=== PATIENT | female | born 2000 | race Caucasian/White ===

== ENCOUNTER 2021-04-02 08:29 | Inpatient (IN) | payer MEDICAID ==
[~2021-04-02] VITALS: Ht 162.6 cm; Wt 53.1 kg
[2021-04-02] MEDS ORDERED: SODIUM CHLORIDE 0.9% 1,000 ML IV ONE ×2 (09:00→12:15)
[2021-04-02] MEDS ORDERED: PREDNISONE 10MG TABLET PO ONE (09:15)
[2021-04-02] MEDS ORDERED: MORPHINE SULFATE 4 MG/ML CPJ (NOT FOR IM USE) IV ONE (09:15)
[2021-04-02 09:30] LABS: HEMATOCRIT. 26.4 % (36.0-48.0); HEMOGLOBIN. 8.9 g/dL (12.0-16.0); MEAN CORPUSCULAR HEMOGLOBIN 24.9 pg (28.0-32.0); MEAN CORPUSCULAR VOLUME 73.7 fL (81.0-99.0); MEAN PLATELET VOLUME 7.2 fl (7.4-10.4); PLATELET 236 x1000/uL (130-400); RED BLOOD CELL COUNT 3.58 mill/uL (4.2-5.4); RED CELL DISTRIBUTION WIDTH 19.8 % (11.6-14.6)
[2021-04-02 09:38] LABS: CHLORIDE 105 mEq/L (98-107)
[2021-04-02 09:39] LABS: INR 0.9; PROTHROMBIN TIME 10.2 sec (9.6-11.0)
[2021-04-02 09:43] LABS: ETHANOL BLOOD < 10 mg/dL
[2021-04-02 09:45] LABS: HCG SCREEN NEGATIVE
[2021-04-02 10:25] LABS: PLATELET ESTIMATE NORMAL
[2021-04-02 12:29] LABS: CLARITY URINE CLEAR (CLEAR); COLOR URINE YELLOW (YELLOW); KETONES URINE NEGATIVE (NEGATIVE); LEUKOCYTE ESTERASE URINE NEGATIVE (NEGATIVE); NITRITE URINE NEGATIVE (NEGATIVE); OCCULT BLOOD URINE NEGATIVE (NEGATIVE); PH URINE 7.5 (4.5-8.0); PROTEIN URINE 2+ (NEGATIVE); UROBILINOGEN URINE 0.2 E.U./dL (0.2-1.0)
[2021-04-02 13:17] LABS: *BARBITURATES SCREEN URINE NEGATIVE (NEGATIVE)
[2021-04-02 13:18] LABS: *BENZODIAZEPINES SCREEN URINE NEGATIVE (NEGATIVE); *COCAINE SCREEN URINE NEGATIVE (NEGATIVE); METHADONE URINE SCREEN NEGATIVE (NEGATIVE); PHENCYCLIDINE URINE SCREEN NEGATIVE (NEGATIVE)
[2021-04-02 13:27] LABS: *AMPHETAMINES SCREEN URINE PRESUMTIVE POSITIVE (NEGATIVE); CANNABINOID URINE SCREEN PRESUMTIVE POSITIVE (NEGATIVE); OPIATES URINE SCREEN PRESUMTIVE POSITIVE (NEGATIVE)
[2021-04-02] MEDS ORDERED: CEFP200T13 MT (14:27)
[2021-04-02] MEDS ORDERED: ALBU6.7H9 INH (14:27)
[2021-04-02] MEDS ORDERED: DOXY100C2 MT (14:27)
[2021-04-02] MEDS ORDERED: IOHEXOL-350 100 ML BOTTLE ONE (15:02)
[2021-04-02] MEDS ORDERED: CEFTRIAXONE 1 G PREMIX 50 ML IV ONE (15:30)
[2021-04-02] MEDS ORDERED: HYDROCODONE/ACETAMINOPHEN 5/325MG TABLET PO PRN (21:45)
[2021-04-02] MEDS ORDERED: NALOXONE HCL 0.4MG/ML VIAL IV PRN (21:45)
[2021-04-03 04:00] VITALS: BP 120/80
[2021-04-03 04:17] VITALS: BP 120/80
[2021-04-03] MEDS ORDERED: PRED5TAB PO (05:03)
[2021-04-03] MEDS: DEXT 5%/0.45% NACL 1000ML 1,000 ML IV SCH ×2 (06:51→17:07)
[2021-04-03] MEDS ORDERED: PANTOPRAZOLE 40MG DR TABLET PO SCH (07:20)
[2021-04-03 08:00] VITALS: BP 116/67
[2021-04-03] MEDS ORDERED: ENOXAPARIN 40MG/0.4ML SYR SUBCUT SCH (09:00)
[2021-04-03] MEDS: PREDNISONE 5MG TABLET PO SCH ×2 (09:02→17:07)
[2021-04-03 12:00] VITALS: BP 100/56
[2021-04-03] MEDS ORDERED: ACETAMINOPHEN 325MG TABLET PO PRN (13:45)
[2021-04-03] MEDS ORDERED: BISACODYL 10MG SUPP PR PRN (13:45)
[2021-04-03] MEDS ORDERED: ACETAMINOPHEN 650MG SUPP PR PRN (13:45)
[2021-04-03] MEDS ORDERED: ONDANSETRON HCL 4MG/2ML INJ IV PRN (13:45)
[2021-04-03] MEDS ORDERED: IPRATROPIUM/ALBUTEROL 0.5-3(2.5)MG/3ML NEB HHN PRN (13:45)
[2021-04-03 15:28] LABS: BG BASE EXCESS -5.5 mmol/L (-2.0-2.0); BG FRACTION INSPIRED OXYGEN 21; BG HCO3 ACT 18.4 mmol/L (22.0-26.0); BG METHEMOGLOBIN 0.2 % (0.0-1.5); BG OXYHEMOGLOBIN 96.8 % (94.0-97.0); BG PCO2 29.9 mmHg (35.0-45.0); BG PH 7.408 (7.350-7.450); BG PO2 97.6 mmHg (75.0-100.0); BG SAMPLE SITE RIGHT BRACHIAL; BG TOTAL HEMOGLOBIN 8.5 g/dL (12.0-18.0); BG VENT MODE ROOM AIR
[2021-04-03] MEDS: AZITHROMYCIN 500 MG in DEXT 5% WATER 250 ML IV SCH (15:43)
[2021-04-03 16:16] LABS: HEMATOCRIT. 24.4 % (36.0-48.0); HEMOGLOBIN. 8.1 g/dL (12.0-16.0); MEAN CORPUSCULAR HEMOGLOBIN 24.2 pg (28.0-32.0); MEAN CORPUSCULAR VOLUME 73.2 fL (81.0-99.0); MEAN PLATELET VOLUME 7.5 fl (7.4-10.4); PLATELET 203 x1000/uL (130-400); RED BLOOD CELL COUNT 3.33 mill/uL (4.2-5.4); RED CELL DISTRIBUTION WIDTH 19.9 % (11.6-14.6)
[2021-04-03 16:26] LABS: CHLORIDE 111 mEq/L (98-107)
[2021-04-03 16:30] VITALS: BP 101/59
[2021-04-03 16:33] LABS: LDL CHOLESTEROL 73 mg/dL (5-100)
[2021-04-03 16:34] LABS: TOTAL IRON BINDING CAPACITY 165 ug/dL (250-450)
[2021-04-03 16:36] LABS: T4 FREE 1.21 ng/dL (0.76-1.46)
[2021-04-03 16:43] LABS: HAPTOGLOBIN 309 mg/dL (30-200)
[2021-04-03 16:44] LABS: HDL CHOLESTEROL 25 mg/dL (40-59)
[2021-04-03] MEDS: CEFTRIAXONE 1,000 MG in DEXTROSE 5% WATER 50 ML IV SCH (17:07)
[2021-04-03 17:09] LABS: PLATELET ESTIMATE NORMAL
[2021-04-03 17:20] LABS: FERRITIN 206 ng/mL (10-291)
[2021-04-03 17:25] LABS: VITAMIN B12 SERUM 403 pg/mL (211-911)
[2021-04-03] MEDS: FERROUS SULFATE 300MG/5ML UDC PO SCH (21:38)
[2021-04-03] MEDS: PANTOPRAZOLE 40MG DR TABLET PO SCH (21:38)
[2021-04-03] MEDS: HYDROXYCHLOROQUINE SULFATE 200MG TABLET PO SCH (21:38)
[2021-04-03] MEDS: ASCORBIC ACID 500 MG TABLET PO SCH (21:39)
[2021-04-03] MEDS: DICLOFENAC SODIUM 75MG DR (EC) TABLET PO SCH (21:39)
[2021-04-04] VITALS: BP 124/82
[2021-04-04] MEDS: METHYLPREDNISOLONE SOD SUCC 125 MG/2 ML VIAL IV SCH ×5 (01:59→23:58)
[2021-04-04] MEDS: DEXT 5%/0.45% NACL 1000ML 1,000 ML IV SCH ×2 (02:03→20:48)
[2021-04-04 04:00] VITALS: BP 120/80
[2021-04-04] MEDS: PANTOPRAZOLE 40MG DR TABLET PO SCH ×2 (06:07→20:47)
[2021-04-04 07:17] LABS: HEMATOCRIT. 25.7 % (36.0-48.0); HEMOGLOBIN. 8.5 g/dL (12.0-16.0); MEAN CORPUSCULAR HEMOGLOBIN 23.9 pg (28.0-32.0); MEAN CORPUSCULAR VOLUME 72.3 fL (81.0-99.0); MEAN PLATELET VOLUME 7.5 fl (7.4-10.4); PLATELET 220 x1000/uL (130-400); RED BLOOD CELL COUNT 3.56 mill/uL (4.2-5.4); RED CELL DISTRIBUTION WIDTH 20.2 % (11.6-14.6)
[2021-04-04 07:31] LABS: CHLORIDE 111 mEq/L (98-107)
[2021-04-04 08:00] VITALS: BP 109/79
[2021-04-04] MEDS: FERROUS SULFATE 300MG/5ML UDC PO SCH (08:28)
[2021-04-04] MEDS: ASCORBIC ACID 500 MG TABLET PO SCH ×2 (08:29→20:47)
[2021-04-04] MEDS: HYDROXYCHLOROQUINE SULFATE 200MG TABLET PO SCH (08:29)
[2021-04-04] MEDS: DICLOFENAC SODIUM 75MG DR (EC) TABLET PO SCH ×2 (08:29→20:47)
[2021-04-04] MEDS: METHOTREXATE SODIUM 2 . 5MG TABLET PO SCH ×2 (08:30→18:17)
[2021-04-04] MEDS: FERROUS SULFATE 325MG TABLET PO SCH ×2 (12:49→18:18)
[2021-04-04 12:52] VITALS: BP 112/71
[2021-04-04] MEDS ORDERED: METHOTREXATE SODIUM 2 . 5MG TABLET PO SCH ×2 (13:00→18:00)
[2021-04-04] MEDS: FOLIC ACID 1MG TABLET PO SCH (15:45)
[2021-04-04] MEDS: CEFTRIAXONE 1,000 MG in DEXTROSE 5% WATER 50 ML IV SCH (15:46)
[2021-04-04 16:32] VITALS: BP 114/71
[2021-04-04] MEDS: AZITHROMYCIN 500 MG in DEXT 5% WATER 250 ML IV SCH (16:50)
[2021-04-04 17:39] LABS: PLATELET ESTIMATE NORMAL
[2021-04-04 20:00] VITALS: BP 117/84
[2021-04-05] VITALS: BP 127/92
[2021-04-05 04:00] VITALS: BP 125/98
[2021-04-05 05:41] LABS: BASOPHILS % 0.3 % (0.0-2.0); HEMATOCRIT. 25.1 % (36.0-48.0); LYMPHOCYTES % 15.5 % (20.0-50.0); MEAN CORPUSCULAR HEMOGLOBIN 23.6 pg (28.0-32.0); MEAN CORPUSCULAR VOLUME 73.9 fL (81.0-99.0); NEUTROPHILS % 79.2 % (40.0-76.0); PLATELET 239 x1000/uL (130-400); RED CELL DISTRIBUTION WIDTH 19.5 % (11.6-14.6)
[2021-04-05 05:44] LABS: CHLORIDE 112 mEq/L (98-107)
[2021-04-05] MEDS: PANTOPRAZOLE 40MG DR TABLET PO SCH (06:21)
[2021-04-05] MEDS: DEXT 5%/0.45% NACL 1000ML 1,000 ML IV SCH (06:21)
[2021-04-05] MEDS: METHYLPREDNISOLONE SOD SUCC 125 MG/2 ML VIAL IV SCH ×4 (06:21→18:06)
[2021-04-05 08:00] VITALS: BP 119/94
[2021-04-05 09:08] LABS: ANTI-DNA DOUBLE STRANDED QUANT > 300 IU/mL (0-9); G6PD RBC 3.56 x10E6/uL (3.77-5.28)
[2021-04-05] MEDS: FOLIC ACID 1MG TABLET PO SCH (09:11)
[2021-04-05] MEDS: ASCORBIC ACID 500 MG TABLET PO SCH (09:11)
[2021-04-05] MEDS: FERROUS SULFATE 325MG TABLET PO SCH ×3 (09:11→18:12)
[2021-04-05] MEDS: HYDROXYCHLOROQUINE SULFATE 200MG TABLET PO SCH (09:11)
[2021-04-05] MEDS: DICLOFENAC SODIUM 75MG DR (EC) TABLET PO SCH (09:11)
[2021-04-05] MEDS: AZITHROMYCIN 500 MG in DEXT 5% WATER 250 ML IV SCH (15:16)
[2021-04-05] MEDS: CEFTRIAXONE 1,000 MG in DEXTROSE 5% WATER 50 ML IV SCH (16:00)
[2021-04-06 17:06] LABS: ANTI-MYELOPEROXIDASE AB < 9.0 U/mL (0.0-9.0); ANTI-PROTEINASE 3 ABS < 3.5 U/mL (0.0-3.5); G6PD QUANTITATIVE 226 (155-399)
[2021-04-06 19:09] LABS: ANA HOMOGENEOUS PATTERN >1:1280 (.); ANA IFA Positive (.)
[2021-04-07 17:09] LABS: ANTI-CARDIOLIPIN AB IGA < 9 APL U/mL (0-11); ANTI-CARDIOLIPIN AB IGG 10 GPL U/mL (0-14); ANTI-CARDIOLIPIN AB IGM 134 MPL U/mL (0-12)
[2021-04-07 19:10] LABS: ACTIN (SMOOTH MUSCLE) ANTIBODY 14 Units (0-19)
[2021-04-08 10:06] LABS: ALDOLASE 5.9 U/L (3.3-10.3); ANGIOTENSION CONVERTING ENZYME 62 U/L (14-82)
[2021-04-09 13:06] LABS: CYTOPLASMIC C-ANCA <1:20 titer (Neg:<1:20); PERINUCLEAR P-ANCA <1:20 titer (Neg:<1:20)
== END 2021-04-05 19:18 | disposition left against medical advice (07) | DRG 346 ==
LOC: ER 08:29 → MICUSO 17:29 → 6WST 04-03 03:31
PROVIDERS: ADMIT Internal Medicine; ATTEND Internal Medicine
DX: M32.9 Systemic lupus erythematosus, unspecified (principal); I50.33 Acute on chronic diastolic (congestive) heart failure; E43 Unspecified severe protein-calorie malnutrition; I27.20 Pulmonary hypertension, unspecified; I31.1 Chronic constrictive pericarditis; J18.9 Pneumonia, unspecified organism; D63.8 Anemia in other chronic diseases classified elsewhere; E86.0 Dehydration; F12.10 Cannabis abuse, uncomplicated; F15.10 Other stimulant abuse, uncomplicated; R80.9 Proteinuria, unspecified; R82.998 Other abnormal findings in urine; F11.10 Opioid abuse, uncomplicated; Z20.822 Contact with and (suspected) exposure to COVID-19; D72.810 Lymphocytopenia; D50.9 Iron deficiency anemia, unspecified; K76.9 Liver disease, unspecified; F17.210 Nicotine dependence, cigarettes, uncomplicated; Z53.29 Procedure and treatment not carried out because of patient's decision for other reasons; Z91.19 Patient's noncompliance with other medical treatment and regimen; Z68.20 Body mass index [BMI] 20.0-20.9, adult
CPT/HCPCS: 36415; 36600; 71045; 71275; 80048; 80053; 80061; 80305; 80320; 81003; 82085; 82164; 82375; 82550; 82607; 82728; 82805; 82955; 83010; 83520; 83540; 83550; 83605; 84134; 84156; 84439; 84443; 84703; 85025; 85041; 85044; 85651; 86038; 86140; 86147; 86160; 86225; 86256; 86592; 86780; 86880; 93005; 93306; 93970; 99285; C9803; J0456; J0696; J1650; J2270; J2930; J7030; J7040; J7060; J7512; J8610; Q9967; U0003; U0005; G0480

== ENCOUNTER 2021-05-21 11:47 | Inpatient (IN) | payer MEDICAID ==
[~2021-05-21] VITALS: Ht 154.9 cm; Wt 51.3 kg
[~2021-05-21 11:47] MED LIST: ALBU6.7H9 INH; CEFP200T13 MT; DOXY100C5 MT; PRED5TAB PO
[2021-05-21] MEDS ORDERED: MORPHINE SULFATE 4 MG/ML CPJ (NOT FOR IM USE) IV ONE (12:45)
[2021-05-21 13:06] LABS: HEMATOCRIT. 31.4 % (36.0-48.0); HEMOGLOBIN. 10.4 g/dL (12.0-16.0); MEAN CORPUSCULAR HEMOGLOBIN 25.5 pg (28.0-32.0); MEAN CORPUSCULAR VOLUME 77.3 fL (81.0-99.0); PLATELET 239 x1000/uL (130-400); RED BLOOD CELL COUNT 4.06 mill/uL (4.2-5.4); RED CELL DISTRIBUTION WIDTH 22.6 % (11.6-14.6)
[2021-05-21 13:11] LABS: CHLORIDE 104 mEq/L (98-107)
[2021-05-21] MEDS ORDERED: MORPHINE SULFATE 2 MG/ML CPJ (NOT FOR IM USE) IV NR (13:15)
[2021-05-21 13:16] LABS: ETHANOL BLOOD < 10 mg/dL
[2021-05-21 13:36] LABS: NUCLEATED RED BLOOD CELLS 1 /100 WBC; PLATELET ESTIMATE NORMAL
[2021-05-21] MEDS ORDERED: VANCOMYCIN 1 G PREMIX 200 ML IV SCH (14:00)
[2021-05-21] MEDS ORDERED: ACETAMINOPHEN 325MG TABLET PO SCH (14:00)
[2021-05-21] MEDS ORDERED: PIPERACILLIN/TAZOBACTAM 3.375GM/50ML PREMIX IV SCH (14:00)
[2021-05-21] MEDS ORDERED: KETOROLAC 15MG/ML VIAL IV SCH (14:00)
[2021-05-21 14:11] LABS: HCG SCREEN NEGATIVE
[2021-05-21] MEDS ORDERED: SODIUM CHLORIDE 0.9% 500 ML IV ONE (14:45)
[2021-05-21] MEDS ORDERED: IOHEXOL-350 100 ML BOTTLE ONE (23:29)
[2021-05-22 00:39] LABS: CLARITY URINE CLEAR (CLEAR); COLOR URINE YELLOW (YELLOW); PH URINE 6.5 (4.5-8.0); SPECIFIC GRAVITY URINE 1.019 (1.005-1.030)
[2021-05-22 00:41] LABS: PROTEIN URINE 2+ (NEGATIVE)
[2021-05-22 00:44] LABS: KETONES URINE NEGATIVE (NEGATIVE); NITRITE URINE NEGATIVE (NEGATIVE); OCCULT BLOOD URINE TRACE (NEGATIVE); UROBILINOGEN URINE 0.2 E.U./dL (0.2-1.0)
[2021-05-22 00:45] LABS: LEUKOCYTE ESTERASE URINE 2+ (NEGATIVE)
[2021-05-22 01:07] LABS: *AMPHETAMINES SCREEN URINE NEGATIVE (NEGATIVE); *BARBITURATES SCREEN URINE NEGATIVE (NEGATIVE); *BENZODIAZEPINES SCREEN URINE NEGATIVE (NEGATIVE); *COCAINE SCREEN URINE NEGATIVE (NEGATIVE)
[2021-05-22 01:08] LABS: METHADONE URINE SCREEN NEGATIVE (NEGATIVE); PHENCYCLIDINE URINE SCREEN NEGATIVE (NEGATIVE)
[2021-05-22 01:15] LABS: CANNABINOID URINE SCREEN PRESUMTIVE POSITIVE (NEGATIVE); OPIATES URINE SCREEN PRESUMTIVE POSITIVE (NEGATIVE)
[2021-05-22] MEDS: MORPHINE SULFATE 2 MG/ML CPJ (NOT FOR IM USE) IV PRN ×2 (01:49→17:16)
[2021-05-22] MEDS ORDERED: KETOROLAC 30MG/ML VIAL IV SCH (04:00)
[2021-05-22] MEDS ORDERED: CEFTRIAXONE 2 G PREMIX 50 ML IV SCH (07:00)
[2021-05-22] MEDS ORDERED: LIDOCAINE HCL 1% 30ML VIAL (10MG/ML) ONE (07:51)
[2021-05-22 09:00] VITALS: BP 111/65
[2021-05-22] MEDS: ACETAMINOPHEN 325MG TABLET PO PRN ×2 (09:07→20:15)
[2021-05-22] MEDS: VANCOMYCIN 1 G PREMIX 200 ML IV SCH ×2 (09:07→15:10)
[2021-05-22] MEDS: CEFTRIAXONE 2 G in DEXTROSE 5% WATER 50 ML IV SCH (09:07)
[2021-05-22] MEDS ORDERED: ONDANSETRON HCL 4MG/2ML INJ IV PRN (09:30)
[2021-05-22] MEDS ORDERED: GUAIFENESIN 200MG/10ML SUGAR FREE UDC PO PRN (09:30)
[2021-05-22] MEDS ORDERED: IPRATROPIUM/ALBUTEROL 0.5-3(2.5)MG/3ML NEB NEB PRN (09:30)
[2021-05-22] MEDS ORDERED: CLONIDINE 0.1MG TABLET PO PRN (09:30)
[2021-05-22] MEDS ORDERED: ACETAMINOPHEN 325MG TABLET PO PRN (09:30)
[2021-05-22] MEDS ORDERED: FUROSEMIDE 40MG/4ML VIAL IVP SCH (09:30)
[2021-05-22] MEDS: ENOXAPARIN 40MG/0.4ML SYR SUBCUT SCH (10:32)
[2021-05-22] MEDS: AZITHROMYCIN 500 MG TABLET PO SCH (10:32)
[2021-05-22 11:33] VITALS: BP 109/62
[2021-05-22 11:39] VITALS: BP 111/65
[2021-05-22 15:45] VITALS: BP 110/63
[2021-05-22 20:00] VITALS: BP 99/60
[2021-05-22] MEDS ORDERED: COLC0.6C3 PO (20:23)
[2021-05-22] MEDS ORDERED: ALBUTEROL 6.7GM HFA INHALER INH SCH (20:30)
[2021-05-22] MEDS ORDERED: NALOXONE HCL 0.4MG/ML VIAL IV PRN (22:30)
[2021-05-22] MEDS: COLCHICINE 0.6MG TABLET PO SCH (22:42)
[2021-05-22] MEDS: PREDNISONE 5MG TABLET PO SCH (22:42)
[2021-05-23] VITALS (7 sets, daily range): BP systolic 98–119; BP diastolic 56–82
[2021-05-23] MEDS: VANCOMYCIN 1 G PREMIX 200 ML IV SCH ×2 (00:23→09:20)
[2021-05-23] MEDS: MORPHINE SULFATE 2 MG/ML CPJ (NOT FOR IM USE) IV PRN ×4 (00:34→18:49)
[2021-05-23 07:56] LABS: HEMATOCRIT. 25.1 % (36.0-48.0); HEMOGLOBIN. 8.3 g/dL (12.0-16.0); MEAN CORPUSCULAR HEMOGLOBIN 25.1 pg (28.0-32.0); MEAN CORPUSCULAR VOLUME 75.6 fL (81.0-99.0); MEAN PLATELET VOLUME 8.2 fl (7.4-10.4); PLATELET 181 x1000/uL (130-400); RED BLOOD CELL COUNT 3.32 mill/uL (4.2-5.4); RED CELL DISTRIBUTION WIDTH 22.8 % (11.6-14.6)
[2021-05-23 08:06] LABS: CHLORIDE 102 mEq/L (98-107)
[2021-05-23] MEDS: CEFTRIAXONE 2 G in DEXTROSE 5% WATER 50 ML IV SCH (08:45)
[2021-05-23] MEDS: ENOXAPARIN 40MG/0.4ML SYR SUBCUT SCH (08:49)
[2021-05-23] MEDS: AZITHROMYCIN 500 MG TABLET PO SCH (08:50)
[2021-05-23] MEDS: COLCHICINE 0.6MG TABLET PO SCH ×2 (08:50→18:53)
[2021-05-23] MEDS: PREDNISONE 5MG TABLET PO SCH ×2 (08:50→18:53)
[2021-05-23 09:46] LABS: BG BASE EXCESS -1.1 mmol/L (-2.0-2.0); BG CARBOXYHEMOGLOBIN 0.3 % (0.5-1.5); BG DEOXYHEMOGLOBIN 3.2 % (0.0-5.0); BG FRACTION INSPIRED OXYGEN 21; BG HCO3 ACT 22.4 mmol/L (22.0-26.0); BG METHEMOGLOBIN 0.3 % (0.0-1.5); BG OXYGEN SATURATION 96.8 % (92.0-98.5); BG OXYHEMOGLOBIN 96.2 % (94.0-97.0); BG PCO2 32.4 mmHg (35.0-45.0); BG PH 7.457 (7.350-7.450); BG PO2 90.2 mmHg (75.0-100.0); BG SAMPLE SITE RIGHT RADIAL; BG TOTAL HEMOGLOBIN 8.8 g/dL (12.0-18.0); BG VENT MODE ROOM AIR
[2021-05-23 11:52] LABS: RHEUMATOID FACTOR SCREEN POSITIVE (NEGATIVE)
[2021-05-23 15:51] LABS: PLATELET ESTIMATE NORMAL
[2021-05-23] MEDS: ACETAMINOPHEN 325MG TABLET PO PRN (20:27)
[2021-05-25] MEDS ORDERED: COLCHICINE 0.6MG TABLET PO SCH (09:00)
== END 2021-05-23 21:00 | disposition home or self-care (01) | DRG 720 ==
LOC: ER 11:47 → MICUSO 05-22 00:27 → EDBEDREQTM 05-22 00:35 → EDBEDREQ 05-22 00:35 → EDBEDREQDT 05-22 00:35 → 6WST 05-22 05:20
PROVIDERS: ADMIT Internal Medicine; ATTEND Internal Medicine
DX: A41.9 Sepsis, unspecified organism (principal); I50.33 Acute on chronic diastolic (congestive) heart failure; I31.3 Pericardial effusion (noninflammatory); I31.9 Disease of pericardium, unspecified; D50.9 Iron deficiency anemia, unspecified; F19.11 Other psychoactive substance abuse, in remission; J45.909 Unspecified asthma, uncomplicated; M32.9 Systemic lupus erythematosus, unspecified; I11.0 Hypertensive heart disease with heart failure; Z20.822 Contact with and (suspected) exposure to COVID-19; Z79.899 Other long term (current) drug therapy
CPT/HCPCS: 36415; 36600; 71045; 71275; 80048; 80053; 80202; 80305; 80320; 81003; 82375; 82805; 83605; 83880; 84145; 84484; 84703; 85025; 85379; 85651; 86038; 86430; 86703; 87426; 93005; 93306; 93970; 99291; J0696; J1650; J1885; J1940; J2270; J2405; J2543; J3370; J3490; J7060; J7512; Q9967; G0480

== ENCOUNTER 2021-06-12 11:20 | Inpatient (IN) | payer MEDICAID ==
[~2021-06-12] VITALS: Ht 154.9 cm; Wt 52.2 kg
[~2021-06-12 11:20] MED LIST changes: -CEFP200T13 MT; +COLC0.6C3 PO; -DOXY100C5 MT
[2021-06-12] MEDS ORDERED: SODIUM CHLORIDE 0.9% 1,000 ML IV ONE (11:45)
[2021-06-12 12:26] LABS: HEMATOCRIT. 27.1 % (36.0-48.0); HEMOGLOBIN. 8.7 g/dL (12.0-16.0); MEAN CORPUSCULAR VOLUME 75.1 fL (81.0-99.0); MEAN PLATELET VOLUME 7.6 fl (7.4-10.4); PLATELET 258 x1000/uL (130-400); RED BLOOD CELL COUNT 3.61 mill/uL (4.2-5.4); RED CELL DISTRIBUTION WIDTH 23.7 % (11.6-14.6)
[2021-06-12 12:30] LABS: CHLORIDE 100 mEq/L (98-107)
[2021-06-12 13:01] LABS: PLATELET ESTIMATE NORMAL
[2021-06-12] MEDS ORDERED: PREDNISONE 20MG TABLET PO ONE (13:15)
[2021-06-12] MEDS ORDERED: SODIUM CHLORIDE 0.9% 1000ML BAG (SEPSIS BOLUS) IV NR (14:30)
[2021-06-12] MEDS ORDERED: VANCOMYCIN 1 G PREMIX 200 ML IV SCH (14:30)
[2021-06-12] MEDS ORDERED: CEFTRIAXONE 1 G PREMIX 50 ML IV SCH (14:30)
[2021-06-12] MEDS ORDERED: MORPHINE SULFATE 4 MG/ML CPJ (NOT FOR IM USE) IV ONE (15:00)
[2021-06-12 15:59] LABS: CLARITY URINE CLEAR (CLEAR); COLOR URINE YELLOW (YELLOW); KETONES URINE TRACE (NEGATIVE); LEUKOCYTE ESTERASE URINE TRACE (NEGATIVE); NITRITE URINE NEGATIVE (NEGATIVE); OCCULT BLOOD URINE NEGATIVE (NEGATIVE); PROTEIN URINE 2+ (NEGATIVE); SPECIFIC GRAVITY URINE 1.015 (1.005-1.030)
[2021-06-12 21:55] VITALS: BP 116/73
[2021-06-12] MEDS: MORPHINE SULFATE 2 MG/ML CPJ (NOT FOR IM USE) IV PRN (23:47)
[2021-06-12] MEDS: SODIUM CHLORIDE 0.9% 1,000 ML IV SCH (23:48)
[2021-06-13] VITALS: BP 103/72
[2021-06-13 04:00] VITALS: BP 100/57
[2021-06-13 06:56] LABS: HEMATOCRIT. 23.5 % (36.0-48.0); HEMOGLOBIN. 7.7 g/dL (12.0-16.0); MEAN CORPUSCULAR HEMOGLOBIN 24.7 pg (28.0-32.0); MEAN CORPUSCULAR VOLUME 75.5 fL (81.0-99.0); PLATELET 198 x1000/uL (130-400); RED BLOOD CELL COUNT 3.11 mill/uL (4.2-5.4); RED CELL DISTRIBUTION WIDTH 22.6 % (11.6-14.6)
[2021-06-13 07:02] LABS: CHLORIDE 110 mEq/L (98-107)
[2021-06-13] MEDS ORDERED: PNEUMOCOCCAL 23-VAL P-SAC VAC 0.5 ML IM ONE (08:00)
[2021-06-13] MEDS: PREDNISONE 5MG TABLET PO SCH ×2 (09:06→16:39)
[2021-06-13] MEDS: COLCHICINE 0.6MG TABLET PO SCH ×2 (09:06→16:39)
[2021-06-13] MEDS: ENOXAPARIN 40MG/0.4ML SYR SUBCUT SCH (09:07)
[2021-06-13] MEDS ORDERED: INFLUENZA VACCINE 05/PF 0.5 ML SYRINGE IM ONE (10:00)
[2021-06-13] MEDS: IPRATROPIUM/ALBUTEROL 0.5-3(2.5)MG/3ML NEB HHN SCH ×3 (10:29→21:35)
[2021-06-13 11:45] VITALS: BP 101/67
[2021-06-13] MEDS: MORPHINE SULFATE 2 MG/ML CPJ (NOT FOR IM USE) IV PRN ×2 (12:18→20:00)
[2021-06-13] MEDS: SODIUM CHLORIDE 0.9% 1,000 ML IV SCH (12:35)
[2021-06-13 14:14] LABS: PLATELET ESTIMATE NORMAL
[2021-06-13] MEDS ORDERED: NALOXONE HCL 0.4MG/ML VIAL IV PRN (17:15)
[2021-06-13 20:00] VITALS: BP 101/65
[2021-06-14] VITALS: BP 106/73
[2021-06-14] MEDS: MORPHINE SULFATE 2 MG/ML CPJ (NOT FOR IM USE) IV PRN ×5 (00:03→20:46)
[2021-06-14] MEDS: IPRATROPIUM/ALBUTEROL 0.5-3(2.5)MG/3ML NEB HHN SCH ×5 (01:34→21:07)
[2021-06-14] MEDS: SODIUM CHLORIDE 0.9% 1,000 ML IV SCH ×2 (01:48→15:45)
[2021-06-14 04:00] VITALS: BP 95/64
[2021-06-14 08:00] VITALS: BP 116/83
[2021-06-14] MEDS: ONDANSETRON HCL 4MG/2ML INJ IV PRN (08:22)
[2021-06-14] MEDS: COLCHICINE 0.6MG TABLET PO SCH ×2 (08:22→17:50)
[2021-06-14] MEDS: PREDNISONE 5MG TABLET PO SCH ×2 (08:22→17:50)
[2021-06-14] MEDS: ENOXAPARIN 40MG/0.4ML SYR SUBCUT SCH (08:23)
[2021-06-14 12:00] VITALS: BP 96/64
[2021-06-14 13:13] LABS: HEMATOCRIT. 25.9 % (36.0-48.0); HEMOGLOBIN. 8.2 g/dL (12.0-16.0); MEAN CORPUSCULAR HEMOGLOBIN 24.2 pg (28.0-32.0); MEAN CORPUSCULAR VOLUME 76.9 fL (81.0-99.0); MEAN PLATELET VOLUME 7.9 fl (7.4-10.4); PLATELET 290 x1000/uL (130-400); RED BLOOD CELL COUNT 3.37 mill/uL (4.2-5.4); RED CELL DISTRIBUTION WIDTH 23.1 % (11.6-14.6)
[2021-06-14 13:22] LABS: CHLORIDE 116 mEq/L (98-107)
[2021-06-14 13:50] LABS: PLATELET ESTIMATE NORMAL
[2021-06-14 16:00] VITALS: BP 102/65
[2021-06-14 20:00] VITALS: BP 105/68
[2021-06-15] VITALS: BP 108/75
[2021-06-15] MEDS: MORPHINE SULFATE 2 MG/ML CPJ (NOT FOR IM USE) IV PRN ×3 (00:47→16:23)
[2021-06-15] MEDS: IPRATROPIUM/ALBUTEROL 0.5-3(2.5)MG/3ML NEB HHN SCH ×4 (02:15→16:06)
[2021-06-15 04:00] VITALS: BP 106/77
[2021-06-15] MEDS: SODIUM CHLORIDE 0.9% 1,000 ML IV SCH (04:22)
[2021-06-15 07:15] LABS: HEMATOCRIT. 23.3 % (36.0-48.0); HEMOGLOBIN. 7.6 g/dL (12.0-16.0); MEAN CORPUSCULAR HEMOGLOBIN 24.9 pg (28.0-32.0); MEAN CORPUSCULAR VOLUME 76.4 fL (81.0-99.0); MEAN PLATELET VOLUME 7.7 fl (7.4-10.4); PLATELET 269 x1000/uL (130-400); RED BLOOD CELL COUNT 3.05 mill/uL (4.2-5.4); RED CELL DISTRIBUTION WIDTH 22.9 % (11.6-14.6)
[2021-06-15 07:26] LABS: CHLORIDE 114 mEq/L (98-107)
[2021-06-15 08:00] VITALS: BP 115/83
[2021-06-15] MEDS: COLCHICINE 0.6MG TABLET PO SCH ×2 (08:54→16:30)
[2021-06-15] MEDS: PREDNISONE 5MG TABLET PO SCH ×2 (08:54→16:30)
[2021-06-15] MEDS ORDERED: ENOXAPARIN 40MG/0.4ML SYR SUBCUT SCH (09:00)
[2021-06-15 12:00] VITALS: BP 122/83
[2021-06-15 13:54] LABS: PLATELET ESTIMATE NORMAL
[2021-06-15 16:07] VITALS: BP 122/83
[2021-06-15 16:23] VITALS: BP 122/83
[2021-06-15] MEDS: ONDANSETRON HCL 4MG/2ML INJ IV PRN (17:08)
== END 2021-06-15 17:52 | disposition home or self-care (01) | DRG 203 ==
LOC: ER 11:20 → 6EST 18:20 → EDBEDREQTM 18:22 → EDBEDREQ 18:22 → ENRESERV 20:02
PROVIDERS: ADMIT Internal Medicine; ATTEND Internal Medicine
DX: M94.0 Chondrocostal junction syndrome [Tietze] (principal); E43 Unspecified severe protein-calorie malnutrition; J90 Pleural effusion, not elsewhere classified; R65.10 Systemic inflammatory response syndrome (SIRS) of non-infectious origin without acute organ dysfunction; D70.9 Neutropenia, unspecified; M32.9 Systemic lupus erythematosus, unspecified; D50.9 Iron deficiency anemia, unspecified; F11.20 Opioid dependence, uncomplicated; F12.90 Cannabis use, unspecified, uncomplicated; F19.10 Other psychoactive substance abuse, uncomplicated; Z79.52 Long term (current) use of systemic steroids; Z87.891 Personal history of nicotine dependence; Z87.01 Personal history of pneumonia (recurrent); Z79.899 Other long term (current) drug therapy; G89.29 Other chronic pain; Z68.21 Body mass index [BMI] 21.0-21.9, adult
CPT/HCPCS: 36415; 71045; 80048; 80053; 81003; 83605; 84145; 85025; 86592; 90686; 90732; 93005; 94640; 99285; J0696; J1650; J2270; J2405; J3370; J7030; J7512

== ENCOUNTER 2021-06-18 13:49 | Emergency (ER) | payer MEDICAID ==
[~2021-06-18] VITALS: Ht 154.9 cm; Wt 51.0 kg
[2021-06-18 13:55] VITALS: BP 100/66
[2021-06-18] MEDS ORDERED: ACETAMINOPHEN 325MG TABLET PO ONE (14:30)
== END 2021-06-18 18:58 | disposition left against medical advice (07) ==
LOC: ER 13:49
DX: R07.89 Other chest pain (principal)
CPT/HCPCS: 93005; 99283

== ENCOUNTER 2021-07-05 20:25 | Emergency (ER) | payer MEDICAID ==
[~2021-07-05] VITALS: Ht 162.6 cm; Wt 50.0 kg
[2021-07-05] MEDS ORDERED: MORPHINE SULFATE 4 MG/ML CPJ (NOT FOR IM USE) IV STA (20:47)
[2021-07-05] MEDS ORDERED: SODIUM CHLORIDE 0.9% 1,000 ML IV ONE (21:00)
[2021-07-05 21:28] LABS: CLARITY URINE CLEAR (CLEAR); COLOR URINE YELLOW (YELLOW); HEMOGLOBIN. 9.3 g/dL (12.0-16.0); KETONES URINE NEGATIVE (NEGATIVE); LEUKOCYTE ESTERASE URINE 2+ (NEGATIVE); MEAN CORPUSCULAR HEMOGLOBIN 26.2 pg (28.0-32.0); MEAN CORPUSCULAR VOLUME 81.4 fL (81.0-99.0); MEAN PLATELET VOLUME 7.2 fl (7.4-10.4); NITRITE URINE NEGATIVE (NEGATIVE); OCCULT BLOOD URINE TRACE (NEGATIVE); PLATELET 372 x1000/uL (130-400); PROTEIN URINE 2+ (NEGATIVE); RED BLOOD CELL COUNT 3.56 mill/uL (4.2-5.4); RED CELL DISTRIBUTION WIDTH 23.4 % (11.6-14.6); SPECIFIC GRAVITY URINE 1.019 (1.005-1.030); UROBILINOGEN URINE 0.2 E.U./dL (0.2-1.0)
[2021-07-05 21:35] LABS: HCG SCREEN NEGATIVE
[2021-07-05 21:47] LABS: PLATELET ESTIMATE NORMAL
[2021-07-05 21:54] LABS: CHLORIDE 116 mEq/L (98-107)
[2021-07-05] MEDS ORDERED: METHYLPREDNISOLONE SOD SUCC 125 MG/2 ML VIAL IV ONE (23:15)
[2021-07-05] MEDS ORDERED: POTASSIUM CHLORIDE 20MEQ TABLET SR PO ONE (23:45)
[2021-07-06] MEDS ORDERED: MORPHINE SULFATE 4 MG/ML CPJ (NOT FOR IM USE) IV ONE (01:00)
[2021-07-06 01:25] VITALS: BP 136/56
== END 2021-07-06 01:30 | disposition home or self-care (01) ==
LOC: ER 20:25
DX: R07.89 Other chest pain (principal); Z20.822 Contact with and (suspected) exposure to COVID-19
CPT/HCPCS: 36415; 71045; 80053; 81003; 81025; 83880; 84484; 84703; 85025; 87426; 87804; 93005; 96361; 96374; 96375; 96376; 99285; J2270; J2930; J7030

== ENCOUNTER 2022-05-28 21:03 | Inpatient (IN) | payer MEDICAID ==
[~2022-05-28] VITALS: Ht 154.9 cm; Wt 59.0 kg
[~2022-05-28 21:03] MED LIST changes: +ALBU6.7H3 INH; -ALBU6.7H9 INH
[2022-05-28] MEDS ORDERED: KETOROLAC 30MG/ML VIAL IV STA (21:54)
[2022-05-28] MEDS ORDERED: MORPHINE SULFATE 4 MG/ML CPJ (NOT FOR IM USE) IV STA (21:54)
[2022-05-28] MEDS ORDERED: SODIUM CHLORIDE 0.9% 1,000 ML IV ONE (22:30)
[2022-05-28] MEDS ORDERED: METHYLPREDNISOLONE SOD SUCC 125 MG/2 ML VIAL IV ONE (22:30)
[2022-05-28 22:55] LABS: CLARITY URINE CLEAR (CLEAR); COLOR URINE YELLOW (YELLOW); KETONES URINE NEGATIVE (NEGATIVE); LEUKOCYTE ESTERASE URINE 1+ (NEGATIVE); NITRITE URINE NEGATIVE (NEGATIVE); OCCULT BLOOD URINE 3+ (NEGATIVE); PH URINE 6.5 (4.5-8.0); PROTEIN URINE 3+ (NEGATIVE); SPECIFIC GRAVITY URINE 1.017 (1.005-1.030)
[2022-05-28 22:56] LABS: BASOPHILS % 0.2 % (0.0-2.0); HEMATOCRIT. 33.6 % (36.0-48.0); HEMOGLOBIN. 11.1 g/dL (12.0-16.0); LYMPHOCYTES % 8.8 % (20.0-50.0); MEAN CORPUSCULAR HEMOGLOBIN 25.6 pg (28.0-32.0); MEAN CORPUSCULAR VOLUME 77.5 fL (81.0-99.0); MEAN PLATELET VOLUME 7.8 fl (7.4-10.4); MONOCYTES % 4.4 % (2.0-8.0); NEUTROPHILS % 85.6 % (40.0-76.0); PLATELET 219 x1000/uL (130-400); RED BLOOD CELL COUNT 4.34 mill/uL (4.2-5.4); RED CELL DISTRIBUTION WIDTH 16.4 % (11.6-14.6)
[2022-05-28 23:01] LABS: CHLORIDE 108 mEq/L (98-107)
[2022-05-28 23:22] LABS: HCG SCREEN NEGATIVE
[2022-05-28] MEDS ORDERED: ASPIRIN 325MG EC TABLET PO ONE (23:30)
[2022-05-29] MEDS ORDERED: CEFTRIAXONE 1 G PREMIX 50 ML IV NR
[2022-05-29] MEDS ORDERED: AZITHROMYCIN 500 MG in DEXT 5% WATER 250 ML IV SCH (00:15)
[2022-05-29] MEDS ORDERED: IOHEXOL-350 100 ML BOTTLE ONE (01:31)
[2022-05-29 09:15] VITALS: BP 131/71
[2022-05-29 09:18] VITALS: BP 109/74
[2022-05-29] MEDS ORDERED: METOPROLOL TARTRATE 25MG TABLET PO SCH (09:45)
[2022-05-29] MEDS ORDERED: LISINOPRIL 10MG TABLET PO SCH (09:45)
[2022-05-29] MEDS ORDERED: NITROGLYCERIN 0.4MG TABLET SL SL PRN (09:45)
[2022-05-29 12:00] VITALS: BP 136/80
[2022-05-29] MEDS: HYDROCODONE/ACETAMINOPHEN 10/325MG TABLET PO PRN ×3 (13:21→22:20)
[2022-05-29] MEDS ORDERED: ONDANSETRON HCL 4MG/2ML INJ IV PRN (13:30)
[2022-05-29] MEDS ORDERED: CLONIDINE 0.1MG TABLET PO PRN (13:30)
[2022-05-29] MEDS ORDERED: CEFTRIAXONE 1 G PREMIX 50 ML IV SCH (13:30)
[2022-05-29] MEDS ORDERED: MAGNESIUM/ALUMINUM HYDROXIDE/SIMETHICONE 30ML UDC PO PRN (13:30)
[2022-05-29] MEDS ORDERED: ACETAMINOPHEN 325MG TABLET PO PRN (13:30)
[2022-05-29] MEDS ORDERED: CEFTRIAXONE 1,000 MG in DEXTROSE 5% WATER 50 ML IV SCH ×3 (14:00→22:00)
[2022-05-29] MEDS ORDERED: ENOXAPARIN 40MG/0.4ML SYR SUBCUT SCH (14:00)
[2022-05-29] MEDS ORDERED: FUROSEMIDE 40MG/4ML VIAL IVP SCH (14:30)
[2022-05-29] MEDS ORDERED: POTASSIUM CHLORIDE 20MEQ TABLET SR PO SCH (14:30)
[2022-05-29] MEDS: ASPIRIN 81MG TABLET PO SCH (14:51)
[2022-05-29] MEDS ORDERED: NALOXONE HCL 0.4MG/ML VIAL IV PRN (15:00)
[2022-05-29] MEDS ORDERED: HYDROCODONE/ACETAMINOPHEN 5/325MG TABLET PO PRN (15:00)
[2022-05-29 16:00] VITALS: BP 122/74
[2022-05-29 18:45] LABS: CLARITY URINE CLEAR (CLEAR); COLOR URINE YELLOW (YELLOW); KETONES URINE NEGATIVE (NEGATIVE); LEUKOCYTE ESTERASE URINE NEGATIVE (NEGATIVE); NITRITE URINE NEGATIVE (NEGATIVE); OCCULT BLOOD URINE TRACE (NEGATIVE); PH URINE 6.5 (4.5-8.0); PROTEIN URINE 2+ (NEGATIVE); SPECIFIC GRAVITY URINE 1.022 (1.005-1.030); UROBILINOGEN URINE 0.2 E.U./dL (0.2-1.0)
[2022-05-29 19:19] LABS: *BARBITURATES SCREEN URINE NEGATIVE (NEGATIVE); *BENZODIAZEPINES SCREEN URINE NEGATIVE (NEGATIVE); *COCAINE SCREEN URINE NEGATIVE (NEGATIVE); METHADONE URINE SCREEN NEGATIVE (NEGATIVE); PHENCYCLIDINE URINE SCREEN NEGATIVE (NEGATIVE)
[2022-05-29 19:20] LABS: *AMPHETAMINES SCREEN URINE PRESUMTIVE POSITIVE (NEGATIVE)
[2022-05-29 19:21] LABS: CANNABINOID URINE SCREEN PRESUMTIVE POSITIVE (NEGATIVE); OPIATES URINE SCREEN PRESUMTIVE POSITIVE (NEGATIVE)
[2022-05-29 20:00] VITALS: BP 134/85
[2022-05-29] MEDS ORDERED: HYDROCORTISONE 2.5% CREAM 20GM TOP SCH (21:00)
[2022-05-29] MEDS: TRIAMCINOLONE ACETONIDE 0.1% CREAM 15GM TOP SCH (22:12)
[2022-05-29] MEDS: HYDROXYCHLOROQUINE SULFATE 200MG TABLET PO SCH (22:12)
[2022-05-29] MEDS: MYCOPHENOLATE MOFETIL 500MG TABLET PO SCH (22:12)
[2022-05-29] MEDS: SILDENAFIL CITRATE 20MG TABLET PO SCH (22:20)
[2022-05-29] MEDS: CELECOXIB 200MG CAPSULE PO SCH (22:25)
[2022-05-29] MEDS: METHYLPREDNISOLONE SOD SUCC 40 MG/ML VIAL IV SCH (23:32)
[2022-05-30] VITALS: BP 96/56
[2022-05-30] MEDS ORDERED: AZITHROMYCIN 500 MG in DEXT 5% WATER 250 ML IV SCH (01:30)
[2022-05-30 04:00] VITALS: BP 101/64
[2022-05-30 06:59] LABS: INR 0.9; PROTHROMBIN TIME 9.8 sec (9.6-11.0)
[2022-05-30 07:02] LABS: CHLORIDE 110 mEq/L (98-107)
[2022-05-30 07:15] LABS: HDL CHOLESTEROL 35 mg/dL (40-59); LDL CHOLESTEROL 120 mg/dL (5-100); PHOSPHORUS 4.5 mg/dL (2.5-4.9); T4 FREE 0.99 ng/dL (0.76-1.46)
[2022-05-30 07:23] LABS: BASOPHILS % 0.2 % (0.0-2.0); HEMATOCRIT. 30.9 % (36.0-48.0); HEMOGLOBIN. 10.3 g/dL (12.0-16.0); LYMPHOCYTES % 10.3 % (20.0-50.0); MEAN CORPUSCULAR HEMOGLOBIN 25.7 pg (28.0-32.0); MEAN CORPUSCULAR VOLUME 77.2 fL (81.0-99.0); MEAN PLATELET VOLUME 8.1 fl (7.4-10.4); MONOCYTES % 3.7 % (2.0-8.0); NEUTROPHILS % 85.8 % (40.0-76.0); PLATELET 245 x1000/uL (130-400); RED BLOOD CELL COUNT 4.01 mill/uL (4.2-5.4); RED CELL DISTRIBUTION WIDTH 16.8 % (11.6-14.6)
[2022-05-30] MEDS: METHYLPREDNISOLONE SOD SUCC 40 MG/ML VIAL IV SCH ×3 (07:27→17:43)
[2022-05-30] MEDS: SILDENAFIL CITRATE 20MG TABLET PO SCH ×2 (07:28→14:33)
[2022-05-30 08:00] VITALS: BP 109/70
[2022-05-30] MEDS: HYDROXYCHLOROQUINE SULFATE 200MG TABLET PO SCH (08:44)
[2022-05-30] MEDS: ASPIRIN 81MG TABLET PO SCH (08:45)
[2022-05-30] MEDS: CELECOXIB 200MG CAPSULE PO SCH ×2 (08:45→17:43)
[2022-05-30] MEDS: MYCOPHENOLATE MOFETIL 500MG TABLET PO SCH (08:46)
[2022-05-30] MEDS: TRIAMCINOLONE ACETONIDE 0.1% CREAM 15GM TOP SCH (08:48)
[2022-05-30] MEDS ORDERED: AMLODIPINE 2.5MG TABLET PO SCH (09:00)
[2022-05-30] MEDS ORDERED: POTASSIUM CHLORIDE 20MEQ TABLET SR PO SCH (09:00)
[2022-05-30] MEDS ORDERED: FUROSEMIDE 40MG/4ML VIAL IVP SCH (09:00)
[2022-05-30] MEDS ORDERED: LISINOPRIL 2.5MG TABLET PO SCH (09:00)
[2022-05-30] MEDS ORDERED: IOHEXOL-300 100 ML BOTTLE ONE (10:44)
[2022-05-30] MEDS: HYDROCODONE/ACETAMINOPHEN 10/325MG TABLET PO PRN (11:42)
[2022-05-30 12:00] VITALS: BP 115/73
[2022-05-30] MEDS ORDERED: P20 PO (14:50)
[2022-05-30] MEDS ORDERED: REV20 PO (14:50)
[2022-05-30] MEDS ORDERED: DICL25TA12 PO (14:50)
[2022-05-30] MEDS ORDERED: AMLO2.5T45 PO (14:50)
[2022-05-30] MEDS ORDERED: ASPI-1160 PO (14:50)
[2022-05-30] MEDS ORDERED: HYDR200T35 PO (14:50)
[2022-05-30] MEDS ORDERED: CELL5 PO (14:50)
[2022-05-30] MEDS ORDERED: FURO40TA5 PO (14:50)
[2022-05-30] MEDS ORDERED: METH2.5T MT (14:50)
[2022-05-30] MEDS ORDERED: FOLI-43 MT (14:50)
[2022-05-30 16:00] VITALS: BP 125/72
[2022-05-30] MEDS ORDERED: WARFARIN SODIUM 2.5MG TABLET PO SCH (18:00)
[2022-05-30 18:05] VITALS: BP 115/68
[2022-05-31] MEDS ORDERED: FUROSEMIDE 40MG TABLET PO SCH (09:00)
[2022-05-31 09:07] LABS: G6PD RBC 4.01 x10E6/uL (3.77-5.28)
[2022-05-31 15:08] LABS: G6PD QUANTITATIVE 237 (155-399)
[2022-06-01 10:06] LABS: ANGIOTENSION CONVERTING ENZYME 39 U/L (14-82)
[2022-06-01 17:06] LABS: ANTI-CARDIOLIPIN AB IGA < 9 APL U/mL (0-11); ANTI-CARDIOLIPIN AB IGG < 9 GPL U/mL (0-14); ANTI-CARDIOLIPIN AB IGM 56 MPL U/mL (0-12)
[2022-06-02] MEDS ORDERED: METHYLPREDNISOLONE SOD SUCC 40 MG/ML VIAL IV SCH (02:00)
[2022-06-02 09:10] LABS: ALDOLASE 3.8 U/L (3.3-10.3)
[2022-06-02 10:10] LABS: ACTIN (SMOOTH MUSCLE) ANTIBODY 10 Units (0-19)
[2022-06-02 13:07] LABS: RNP ANTIBODY 0.7 AI (0.0-0.9)
[2022-06-03 09:07] LABS: ANTI-DNA DOUBLE STRANDED QUANT > 300 IU/mL (0-9)
[2022-06-04 10:09] LABS: ATYPICAL P-ANCA <1:20 titer (Neg:<1:20); CYTOPLASMIC C-ANCA <1:20 titer (Neg:<1:20); PERINUCLEAR P-ANCA <1:20 titer (Neg:<1:20)
[2022-06-05] MEDS ORDERED: PREDNISONE 20MG TABLET PO SCH (06:00)
[2022-06-05 13:10] LABS: ANA IFA Positive (.)
== END 2022-05-30 18:55 | disposition home or self-care (01) | DRG 198 ==
LOC: ER 21:03 → 3WST 05-29 00:06 → ENRESERV 05-29 08:35
PROVIDERS: ADMIT Internal Medicine; ATTEND Internal Medicine
DX: I24.8 Other forms of acute ischemic heart disease (principal); I50.33 Acute on chronic diastolic (congestive) heart failure; I31.39 Other pericardial effusion (noninflammatory); D68.61 Antiphospholipid syndrome; I27.21 Secondary pulmonary arterial hypertension; M94.0 Chondrocostal junction syndrome [Tietze]; I11.0 Hypertensive heart disease with heart failure; M32.9 Systemic lupus erythematosus, unspecified; F17.200 Nicotine dependence, unspecified, uncomplicated; Z20.822 Contact with and (suspected) exposure to COVID-19; M13.0 Polyarthritis, unspecified; I08.1 Rheumatic disorders of both mitral and tricuspid valves; I73.00 Raynaud's syndrome without gangrene; Z79.01 Long term (current) use of anticoagulants; Z79.52 Long term (current) use of systemic steroids; Z79.82 Long term (current) use of aspirin; Z79.899 Other long term (current) drug therapy
CPT/HCPCS: 36415; 71045; 71275; 74177; 76700; 80048; 80053; 80061; 80076; 80305; 81003; 82085; 82164; 82955; 83520; 83735; 83880; 84100; 84439; 84443; 84484; 84703; 85025; 85041; 85379; 85651; 86147; 86160; 86225; 86235; 86256; 86332; 86431; 86880; 87426; 87804; 93005; 93306; 93970; 99291; C9803; J0456; J0696; J1650; J1885; J1940; J2270; J2920; J2930; J7030; J7060; J7517; Q9967

== ENCOUNTER 2023-11-03 09:06 | Emergency (ER) | payer MEDICAID, OTHER ==
[~2023-11-03] VITALS: Ht 157.5 cm; Wt 64.0 kg
[2023-11-03 08:47] VITALS: PULSE 80; RESP 22
[~2023-11-03 09:06] MED LIST changes: +AMLO2.5T45 PO; +ASPI-1160 PO; +CELL5 PO; -COLC0.6C3 PO; +DICL25TA12 PO; +FOLI-43 MT; +FURO40TA5 PO; +HYDR200T35 PO; +METH2.5T MT; +P20 PO; -PRED5TAB PO; +REV20 PO
[2023-11-03 09:18] VITALS: O2SAT 100
[2023-11-03] MEDS ORDERED: METHYLPREDNISOLONE SOD SUCC 125MG/2ML (ACT-O-VIAL) IV ONE (09:30)
[2023-11-03] MEDS: SODIUM CHLORIDE 0.9% 1,000 ML IV ONE (09:30)
[2023-11-03] MEDS ORDERED: ACETAMINOPHEN 325MG TABLET PO ONE (09:45)
[2023-11-03 09:47] VITALS: PULSE 80; RESP 22
[2023-11-03] MEDS: IPRATROPIUM/ALBUTEROL 0.5-3(2.5)MG/3ML NEB HHN ONE (09:47)
[2023-11-03 09:57] LABS: HEMATOCRIT. 34.8 % (36.0-48.0); HEMOGLOBIN. 11.3 g/dL (12.0-16.0); MEAN CORPUSCULAR HEMOGLOBIN 24.5 pg (28.0-32.0); MEAN CORPUSCULAR HGB CONC 32.5 g/dL (31.0-37.0); MEAN CORPUSCULAR VOLUME 75.4 fL (81.0-99.0); MEAN PLATELET VOLUME 7.9 fl (7.4-10.4); PLATELET 302 x1000/uL (130-400); RED BLOOD CELL COUNT 4.61 mill/uL (4.2-5.4); RED CELL DISTRIBUTION WIDTH 20.7 % (11.6-14.6); WHITE BLOOD COUNT 7.8 x1000/uL (4.5-11.0)
[2023-11-03 10:19] LABS: DIFFERENTIAL COMMENT 1
[2023-11-03 10:30] LABS: HCG SCREEN NEGATIVE
[2023-11-03 10:39] LABS: ALANINE AMINOTRANSFERASE 28 IU/L (10-49); ALBUMIN 3.5 g/dL (3.2-4.8); ASPARTATE AMINOTRANSFERASE 27 IU/L (<34); BILIRUBIN TOTAL 0.2 mg/dL (0.1-1.0); CALCIUM 8.1 mg/dL (8.7-10.4); CARBON DIOXIDE 18 mEq/L (21-32); CHLORIDE 110 mEq/L (98-107); CREATININE 0.8 mg/dL (0.6-1.0); GLUCOSE 143 mg/dL (70-105); POTASSIUM 4.4 mEq/L (3.5-5.1); PROTEIN TOTAL 5.5 g/dL (6.0-8.3); SODIUM 138 mEq/L (136-145); UREA NITROGEN BLOOD 21 mg/dL (9-23)
[2023-11-03 10:42] LABS: ETHANOL BLOOD < 10 mg/dL (<10)
[2023-11-03 11:49] LABS: PLATELET ESTIMATE NORMAL
[2023-11-03 12:02] LABS: ANISOCYTOSIS 2+; MICROCYTOSIS 1+
[2023-11-03 12:10] LABS: CLARITY URINE TURBID (CLEAR); COLOR URINE YELLOW (YELLOW); GLUCOSE URINE NEGATIVE (NEGATIVE); KETONES URINE NEGATIVE (NEGATIVE); LEUKOCYTE ESTERASE URINE TRACE (NEGATIVE); NITRITE URINE NEGATIVE (NEGATIVE); OCCULT BLOOD URINE TRACE (NEGATIVE); PH URINE 6.5 (4.5-8.0); PROTEIN URINE 2+ (NEGATIVE); SPECIFIC GRAVITY URINE 1.026 (1.005-1.030)
[2023-11-03] MEDS: KETOROLAC 30MG/ML VIAL IV ONE (12:24)
[2023-11-03 12:25] LABS: BACTERIA URINE 4+; SQUAMOUS EPITHELIAL CELL URINE 3+ /lpf (RARE/1+); WBC URINE 15-25 /hpf (0-2); YEAST URINE NONE SEEN
[2023-11-03] MEDS: CEFTRIAXONE 1GM/50ML 50 ML IV ONE (13:04)
[2023-11-03] MEDS: METHYLPREDNISOLONE SOD SUCC 125MG/2ML (ACT-O-VIAL) IV SCH (13:05)
[2023-11-03] MEDS: ACETAMINOPHEN 325MG TABLET PO SCH (13:05)
[2023-11-03] MEDS ORDERED: CEFP200T13 MT (14:11)
[2023-11-03] MEDS ORDERED: P50 MT (14:11)
[2023-11-03] MEDS ORDERED: ALBU6.7H15 INH (14:24)
[2023-11-03 14:44] VITALS: BP 152/106; PULSE 99; RESP 20; TEMP 98.2
[2023-11-03 16:21] LABS: *AMPHETAMINES SCREEN URINE NEGATIVE (NEGATIVE); *BARBITURATES SCREEN URINE NEGATIVE (NEGATIVE); *BENZODIAZEPINES SCREEN URINE NEGATIVE (NEGATIVE); *COCAINE SCREEN URINE NEGATIVE (NEGATIVE); CANNABINOID URINE SCREEN NEGATIVE (NEGATIVE); ECSTASY MDMA SCREEN URINE NEGATIVE (NEGATIVE); METHADONE URINE SCREEN Neg (NEGATIVE); OPIATES URINE SCREEN NEGATIVE (NEGATIVE); PHENCYCLIDINE URINE SCREEN NEGATIVE (NEGATIVE)
== END 2023-11-03 14:45 | disposition home or self-care (01) ==
LOC: ER 09:28
DX: A18.4 Tuberculosis of skin and subcutaneous tissue (principal); N39.0 Urinary tract infection, site not specified; J45.909 Unspecified asthma, uncomplicated; Z20.822 Contact with and (suspected) exposure to COVID-19
CPT/HCPCS: 80053; 80305; 81003; 80320; 84703; 83690; 85025; 87086; 87186; 87804 ×2; 87077; 36415; 71045; 94640; 93005; 96361; 96365; 96375; 99285; 87426; J0696; J1885; J2930; Z7610 ×4; J7030; J2919; G0480

== ENCOUNTER 2024-02-27 22:02 | Emergency (ER) | payer MEDICAID, OTHER ==
[~2024-02-27] VITALS: Ht 152.4 cm; Wt 64.0 kg
[~2024-02-27 22:02] MED LIST changes: +ALBU6.7H15 INH; +CEFP200T13 MT; +P50 MT
[2024-02-27 22:05] VITALS: TEMP 97.5; O2SAT 99
[2024-02-27] MEDS ORDERED: OFLO5DRO4 RIGHT EAR (23:55)
[2024-02-27] MEDS ORDERED: IBUP-2029 MT (23:55)
[2024-02-28] MEDS: IBUPROFEN 600MG TABLET PO ONE (00:56)
[2024-02-28 00:58] VITALS: BP 120/79; PULSE 102; RESP 16
== END 2024-02-28 00:59 | disposition home or self-care (01) ==
LOC: ER 22:02
DX: H60.91 Unspecified otitis externa, right ear (principal); J45.909 Unspecified asthma, uncomplicated; F12.10 Cannabis abuse, uncomplicated; Z79.899 Other long term (current) drug therapy
CPT/HCPCS: 99283

== ENCOUNTER 2024-03-09 15:04 | Emergency (ER) | payer MEDICAID ==
[~2024-03-09] VITALS: Ht 162.6 cm; Wt 85.0 kg
[~2024-03-09 15:04] MED LIST changes: +IBUP-2029 MT; +OFLO5DRO4 RIGHT EAR
[2024-03-09 15:06] VITALS: BP 122/68; PULSE 88; RESP 20; TEMP 99.2; O2SAT 96
== END 2024-03-09 18:47 | disposition left against medical advice (07) ==
LOC: ER 15:04
DX: M79.10 Myalgia, unspecified site (principal); Z53.21 Procedure and treatment not carried out due to patient leaving prior to being seen by health care provider